=== PATIENT | female | born 1990 | race Caucasian/White ===

== ENCOUNTER 2016-11-09 19:22 | Emergency (ER) | payer OTHER ==
[~2016-11-09] VITALS: Ht 172.7 cm; Wt 97.5 kg
[2016-11-09] MEDS ORDERED: METHOCARBAMOL 500 MG TAB PO ONE (21:30)
[2016-11-09] MEDS ORDERED: IBUPROFEN 600 MG TAB PO ONE (21:30)
[2016-11-09] MEDS ORDERED: ROBA500T PO (21:32)
[2016-11-09] MEDS ORDERED: IBUP600T26 PO (21:32)
[2016-11-09 21:43] VITALS: BP 124/90
== END 2016-11-09 21:47 | disposition home or self-care (01) ==
LOC: M ED 21:18
DX: S29.012A Strain of muscle and tendon of back wall of thorax, initial encounter (principal); X50.0XXA Overexertion from strenuous movement or load, initial encounter; Y92.89 Other specified places as the place of occurrence of the external cause; Y93.89 Activity, other specified; Y99.0 Civilian activity done for income or pay; M54.5 Low back pain; F17.210 Nicotine dependence, cigarettes, uncomplicated; Z88.0 Allergy status to penicillin

== ENCOUNTER 2017-01-07 21:48 | Emergency (ER) | payer OTHER ==
[~2017-01-07] VITALS: Ht 172.7 cm; Wt 84.9 kg
[~2017-01-07 21:48] MED LIST: IBUP-1022 PO; ROBA500T PO
[2017-01-07 21:56] VITALS: BP 126/69
== END 2017-01-08 02:00 | disposition left against medical advice (07) ==
LOC: M ED 21:48
DX: Z53.29 Procedure and treatment not carried out because of patient's decision for other reasons (principal)

== ENCOUNTER 2017-02-14 13:05 | Emergency (ER) | payer OTHER ==
[~2017-02-14] VITALS: Ht 172.7 cm; Wt 89.2 kg
[2017-02-14 13:09] VITALS: BP 138/64
[2017-02-14 13:47] LABS: CONTROL LINE UCG INT CTR LINE PRESENT
--- NOTE | 2017-02-14 14:39 | REP ---
PELVIC SONOGRAPHY: HISTORY: Pelvic pain. FINDINGS: Transabdominal and endovaginal scanning are performed. Uterine dimensions are normal at 8.3 x 4.6 x 5.5 cm. Endometrial echo 0.8 cm thick and centrally placed. The uterus is retroverted. No free fluid is seen. No focal uterine mass is seen. Normal ovaries are seen. Right ovary measures 3.1 x 2.6 x 2.6 cm. Its Doppler flow is normal. Resistive index is 0.55. The left ovary measures 3.4 x 1.1 x 1.4 cm. Its Doppler flow is normal with resistive index 0.54. IMPRESSION: Retroverted retroflexed uterus. Normal pelvic sonography. Signed by Major Jameson MD 02/14/2017 05:04 P
[2017-02-14] MEDS ORDERED: CIPR-249 PO (14:52)
[2017-02-14] MEDS ORDERED: CYCL10TA PO (14:52)
[2017-02-14] MEDS ORDERED: IBUP-1022 PO (14:52)
== END 2017-02-14 15:10 | disposition home or self-care (01) ==
LOC: M ED 13:05
DX: N39.0 Urinary tract infection, site not specified (principal); M54.16 Radiculopathy, lumbar region; F17.210 Nicotine dependence, cigarettes, uncomplicated; Z88.0 Allergy status to penicillin

== ENCOUNTER 2017-03-17 16:08 | Emergency (ER) | payer OTHER ==
[~2017-03-17] VITALS: Ht 172.7 cm; Wt 93.6 kg
[~2017-03-17 16:08] MED LIST changes: +CIPR-249 PO; +CYCL10TA PO
[2017-03-17] MEDS ORDERED: IBUPROFEN 600 MG TAB PO ONE (16:30)
[2017-03-17 17:36] VITALS: BP 126/76
== END 2017-03-17 17:38 | disposition home or self-care (01) ==
LOC: M ED 16:08
DX: J06.9 Acute upper respiratory infection, unspecified (principal); Z88.0 Allergy status to penicillin

== ENCOUNTER 2019-12-14 19:28 | Emergency (ER) | payer OTHER ==
[~2019-12-14] VITALS: Ht 172.7 cm; Wt 86.4 kg
[~2019-12-14 19:28] MED LIST changes: +CYCL-707 PO; -CYCL10TA PO
[2019-12-14 21:58] LABS: HEMATOCRIT 37.9 % (36.0-47.0); HEMOGLOBIN 12.3 g/dl (12.0-15.5); MEAN CORPUSCULAR HEMOGLOBIN 30.4 pg (27.0-33.0); MEAN CORPUSCULAR HGB CONC 32.5 g/dl (32.0-36.5); MEAN CORPUSCULAR VOLUME 93.8 fl (80.0-96.0); PLATELET COUNT, AUTOMATED 207 10^3/uL (150-450); RED BLOOD COUNT 4.04 10^6/uL (4.00-5.40); WHITE BLOOD COUNT 8.4 10^3/uL (4.0-10.0)
[2019-12-14 22:26] LABS: AMPHETAMINES LEVEL URINE NEGATIVE (NEGATIVE); BARBITURATES URINE NEGATIVE (NEGATIVE); BENZODIAZEPINES URINE NEGATIVE (NEGATIVE); CANNABINOIDS URINE NEGATIVE (NEGATIVE); COCAINE METABOLITE URINE NEGATIVE (NEGATIVE); METHADONE URINE NEGATIVE (NEGATIVE); OPIATES URINE NEGATIVE (NEGATIVE); PHENCYCLIDINE URINE NEGATIVE (NEGATIVE)
[2019-12-14 22:30] LABS: HCG, SERUM QUALITATIVE NEGATIVE (NEGATIVE)
[2019-12-14 23:02] VITALS: BP 129/58
[2019-12-14 23:05] LABS: ACETAMINOPHEN LEVEL < 2.0 UG/ML (10.0-30.0); ALBUMIN 3.9 GM/DL (3.2-5.2); ALT/SGPT 17 U/L (12-78); BILIRUBIN,DIRECT 0.1 MG/DL (0.0-0.2); BILIRUBIN,TOTAL 0.3 MG/DL (0.2-1.0); BLOOD UREA NITROGEN 11 MG/DL (7-18); CALCIUM LEVEL 8.8 MG/DL (8.5-10.1); CARBON DIOXIDE LEVEL 27 MEQ/L (21-32); CHLORIDE LEVEL 108 MEQ/L (98-107); CREATININE FOR GFR 0.76 MG/DL (0.55-1.30); ETHYL ALCOHOL (ETHANOL) < 0.003 % (0.000-0.010); GLOMERULAR FILTRATION RATE > 60.0 (>60); GLUCOSE, FASTING 85 MG/DL (70-100); SALICYLATE LEVEL 3.8 MG/DL (5.0-30.0); SODIUM LEVEL 139 MEQ/L (136-145); TOTAL PROTEIN 7.1 GM/DL (6.4-8.2)
== END 2019-12-14 23:00 | disposition home or self-care (01) ==
LOC: M ED 19:28
DX: F32.9 Major depressive disorder, single episode, unspecified (principal); R45.851 Suicidal ideations; F17.210 Nicotine dependence, cigarettes, uncomplicated; Z88.0 Allergy status to penicillin; Z91.040 Latex allergy status
CPT/HCPCS: 36415; 80048; 80076; 80307; 84443; 84703; 85027; 99284; G0480